=== PATIENT | male | born 1935 | race Caucasian/White ===

== ENCOUNTER 2018-10-30 11:45 | Emergency (ER) | payer OTHER ==
[~2018-10-30] VITALS: Ht 175.3 cm; Wt 84.4 kg
[2018-10-30 11:50] VITALS: Ht 175.3 cm; Wt 84.4 kg
[2018-10-30 12:44] LABS: ALKALINE PHOSPHATASE 73 U/L (46-116); ALT/SGPT 35 U/L (16-63); AST/SGOT 65 U/L (15-37); BILIRUBIN TOTAL 0.66 mg/dL (0.20-1.00); CALCIUM 7.9 mg/dL (8.5-10.1); CHLORIDE SERUM 101 mmol/L (98-107); POTASSIUM SERUM 4.1 mmol/L (3.5-5.1); SODIUM SERUM 140 mmol/L (136-145)
[2018-10-30 12:50] LABS: PLATELET COUNT 263 x10^3mcL (130-400)
[2018-10-30 12:51] LABS: BASOPHIL % 0 % (0-2)
[2018-10-30 12:54] LABS: ALBUMIN 2.3 g/dL (3.4-5.0); CARBON DIOXIDE 8.7 mmol/L (21-32); CREATININE SERUM 4.2 mg/dL (0.7-1.3); GLUCOSE SERUM 52 mg/dL (74-106)
[2018-10-30 13:54] VITALS: BP 33/13
== END 2018-10-30 16:54 | disposition expired ==
LOC: ED 11:45
PROVIDERS: Emergency Medicine
DX: I46.9 Cardiac arrest, cause unspecified (principal); K92.2 Gastrointestinal hemorrhage, unspecified; I10 Essential (primary) hypertension; E11.9 Type 2 diabetes mellitus without complications; Z86.73 Personal history of transient ischemic attack (TIA), and cerebral infarction without residual deficits
CPT/HCPCS: 31500; 83880; C9113; Q0092